=== PATIENT | female | born 1995 | race Caucasian/White ===

== ENCOUNTER 2016-10-31 21:21 | Emergency (ER) | payer MEDICAID ==
--- NOTE | 2016-10-31 21:27 | EDPHY ---
H & P Time Seen by Provider: 10/31/16 21:27 - Personal History Tetanus Vaccine Date: last 10 years - Medical/Surgical History Hx Asthma: No Hx Chronic Respiratory Disease: No Hx Diabetes: No Hx Cardiac Disease: No Hx Renal Disease: No Hx Cirrhosis: No Hx Alcoholism: No Hx HIV/AIDS: No Hx Splenectomy or Spleen Trauma: No Other PMH: meningitis as a child - Social History Smoking Status: Never smoked Allergies/Adverse Reactions: Penicillins Allergy (Unknown, Verified 02/06/16 09:36) as child Home Medications: Medication Instructions Recorded Azithromycin [Zithromax tab 250 mg] 250 mg PO DAILY #4 tab 02/06/16 Control Pill 02/06/16 Cephalexin [Keflex] 500 mg PO TID 5 Days 07/28/16 Medical Decision Making ED Course/Re-evaluation: CHIEF COMPLAINT: HISTORY OF PRESENT ILLNESS: must have 4 elements: Location, Quality, Severity , Duration, Timing, Context, Modifying Factors, Associated Signs and Symptoms REVIEW OF SYSTEMS: A 10 point review of systems was performed and is negative with the exception of the elements mentioned in the history of present illness. PHYSICAL EXAM: HR, BP, O2 Sat, RR. Temp noted General Appearance: Alert, well hydrated, appropriate, and non-toxic appearing. Head: Atraumatic without scalp tenderness or obvious injury Eyes: Pupils equal, round, reactive to light and accommodation, EOMI, no trauma , no injection. Ears: Clear bilaterally, no perforation, normal landmarks Nose: Atraumatic, no rhinorrhea, clear. Throat: There is no erythema or exudates, no lesions, normal tonsils, mucus membranes moist. Neck: Supple, 2+ carotid upstroke, nontender, no lymphadenopathy. Respiratory: No retractions, no distress, no wheezes, and no accessory muscle use. Lungs are clear to auscultation bilaterally. Cardiovascular: Regular rate and rhythm, no murmurs, rubs, or gallops. Bilateral carotid, radial, dorsalis pedis, and posterior tibial pulses intact. Good capillary refill all extremities. Gastrointestinal: Abdomen is soft, nontender, non-distended, no masses, no rebound, no guarding, no peritoneal signs. Musculoskeletal: Normal active ROM of all extremities, atraumatic. Neurological: Alert, appropriate, and interactive. The patient has normal DTRs and non-focal cranial nerves, motor, sensory, and cerebellar exam. Skin: No rashes, good turgor, no nodules on palpation. Past medical history: Past surgical history: Family history: Social history: DIAGNOSTICS/PROCEDURES/CRITICAL CARE TIME: DIFFERENTIAL DIAGNOSIS: MEDICAL DECISION MAKING:
[2016-10-31] MEDS ORDERED: LORazepam 2 MG/ML INJ IVP ONE (21:38)
[2016-10-31] MEDS ORDERED: HYDROmorphONE/DILAUDID 1 MG/ML SYR IVP ONE ×2 (21:38→22:57)
[2016-10-31] MEDS ORDERED: ONDANSETRON 4 MG/2 ML VIAL IVP ONE (21:38)
[2016-10-31] MEDS ORDERED: NS 1,000 ML IV ONE (21:38)
--- NOTE | 2016-10-31 21:43 | EDPHY ---
H & P Stated Complaint: intermittent stomach cramps/pain x2 days, recent viral illness Time Seen by Provider: 10/31/16 21:27 HPI/ROS: CHIEF COMPLAINT: Abdominal cramping x2 days HISTORY OF PRESENT ILLNESS: 21-year-old female via private vehicle in the emergency department with primary complaint of intermittent suprapubic and lower abdominal abdominal cramping which lasted anywhere between 10-15 seconds described as sharp and stabbing with no definitive pattern, no known exacerbating or alleviating factors. This started yesterday and has been occurring intermittently since. This evening she also notes new onset of flu-like symptoms described as fever, myalgia, bilateral otalgia. She also describes antecedent URI symptoms 1 week ago described as nonproductive cough and rhinorrhea which does seem to have resolved. No rash. No chest pain. No dyspnea. No urinary complaints. No flank pain. No dyspareunia. No STD or PID history. REVIEW OF SYSTEMS: A ten point review of systems was performed and is negative with the exception of the items mentioned in the HPI PAST MEDICAL & SURGICAL HISTORY: No history of abdominal surgeries SOCIAL HISTORY: Nonsmoker PHYSICAL EXAM (Prior to examination, patient consented to physical exam, hands were washed and my usual and customary physical exam procedures followed) 1) GENERAL: Well-developed, well-nourished, alert and oriented. Appears anxious. Crying. 2) HEAD: Normocephalic, atraumatic 3) HEENT: Pupils equal, round, reactive to light bilaterally. Sclera anicteric. Nasopharynx, oropharynx, clear, no lesions. No trismus no drooling. No tonsillar enlargement no exudate. Ears bilaterally with normal tympanic membranes. 4) NECK: Full range of motion, no meningeal signs. 5) LUNGS: Clear auscultation bilaterally, no wheezes, no rhonchi, no retractions. 6) HEART: Regular rate and rhythm, no murmur, no heave, no gallop. 7) ABDOMEN: tender to palpation suprapubic region. No guarding, no rebound, no focal tenderness, negative McBurney's, negative Austin's, negative Rovsing's, negative peritoneal sign, 8) MUSCULOSKELETAL: Moving all extremities, no focal areas of tenderness, no obvious trauma. No peripheral edema or discoloration. 9) BACK: No CVA tenderness, no midline vertebral tenderness, no fluctuance, no step-off, no obvious trauma, no visual or palpable abnormality. 10) SKIN: No rash, no petechiae. 11) Psychiatric: Patient is oriented X 3, she appears anxious DIFFERENTIAL DIAGNOSIS: My differential diagnosis includes, but is not limited to, influenza, acute appendicitis, , bowel obstruction, acute pancreatitis, ovarian torsion, ectopic , gastritis and urinary tract infection. The patient understands that this diagnosis is provisional and can never be 100% accurate. This is a partial list of diagnoses considered. These considerations are based on history, physical exam, past history and reassessment. - Personal History LMP (Females 10-55): 22-28 Days Ago Current Tetanus/Diphtheria Vaccine: Unsure Current Tetanus Diphtheria and Acellular Pertussis (TDAP): Unsure Tetanus Vaccine Date: last 10 years - Medical/Surgical History Hx Asthma: No Hx Chronic Respiratory Disease: No Hx Diabetes: No Hx Cardiac Disease: No Hx Renal Disease: No Hx Cirrhosis: No Hx Alcoholism: No Hx HIV/AIDS: No Hx Splenectomy or Spleen Trauma: No Other PMH: meningitis as a child - Social History Smoking Status: Never smoked Constitutional: Initial Vital Signs Temperature (C) 37.0 C 10/31/16 21:31 Heart Rate 110 H 10/31/16 21:31 Respiratory Rate 18 10/31/16 21:31 Blood Pressure 109/87 H 10/31/16 21:31 O2 Sat (%) 99 10/31/16 21:31 O2 Delivery Mode Room Air Allergies/Adverse Reactions: Penicillins Allergy (Unknown, Verified 02/06/16 09:36) as child Home Medications: Medication Instructions Recorded Junel 1 mg-20 Mcg Tablet 10/31/16 Medical Decision Making - Diagnostics Imaging: Ultrasound abdomen limited. History: Right lower quadrant pain. Elevated white blood cell count. Findings: Ultrasound is performed of the right lower quadrant. A normal nor an abnormal appendix is visualized. No evidence for an abnormal fluid collection. Fluid-filled bowel is seen in the right lower quadrant. Impression: Indeterminate study for appendicitis as a normal nor an abnormal appendix is visualized. Results called and discussed with Theresa Alex PA-C at 10/31/2016 22:55 Dictated By: Abel Win MD CT Scan of the Abdomen and Pelvis (With Contrast) Indication: Abdomen pain. Evaluate for appendicitis. Comparison: Ultrasound performed earlier. Technique: 85 mL of Isovue 300 were given intravenously by machine power injection. Multidetector helical CT imaging was performed from the diaphragm to the symphysis pubis. Dose reduction techniques were utilized. Findings: Abdomen: Lung bases are of acute consolidation. No focal liver lesion. Gallbladder is unremarkable. Pancreas is normal in appearance. Spleen is unremarkable. Both kidneys is enhance normally without evidence for mass or hydronephrosis. Both adrenal glands are normal in size and appearance. Pelvis: Mild stool is seen in the colon. No evidence for diverticulitis. The appendix is normal in size and appearance. No evidence for small bowel obstruction. Uterus and adnexal region is unremarkable. No evidence for bladder calculus. No aggressive osseous lesion. Impression: Normal CT of the abdomen and pelvis. No CT findings for appendicitis. Results called and discussed with Theresa Alex PA-C at 10/31/2016 23:32 Dictated By: Abel Win MD Images reviewed by myself ED Course/Re-evaluation: 9:50 p.m.: Discussed case Dr. Stephen Mitchell in the ER. Will obtain imaging studies. 10:44 p.m.: Re-evaluation after Ativan, Dilaudid, Zofran. She is feeling improvement although notes continued pain. She appears more calm . Awaiting the ultrasound results. 10:57 p.m.: I discussed with the patient her the ultrasound results showing a nonvisualized appendix. She has continued pain, requesting further analgesia. Given her continued pain in the lower abdomen , [place] [id number] , I have recommended further imaging with a CT scan. Discussed the indications risks benefits and she consents. 12:01 a.m.: Patient is sleeping. Re-examined. No complaints of abdominal pain. I am able to elicit a mild amount of pain with very deep palpation. I discussed her imaging results. doubt acute surgical abdominal pathology. The specific etiology of her abdominal pain is not completely clear at this time. We discussed the importance of follow-up with primary care with Gastroenterology. I offered admission which she declines. She feels comfortable being discharged with analgesia. Provided my usual and customary abdominal precautions instructions. - Data Points Laboratory Results: Laboratory Results 10/31/16 21:49 10/31/16 21:49 10/31/16 10/31/16 10/31/16 22:25 21:49 21:40 WBC 22.42 H 10^3/uL (3.80-9.50) RBC 5.31 10^6/uL (4.18-5.33) Hgb 14.8 g/dL (12.6-16.3) Hct 42.5 % (38.0-47.0) MCV 80.0 L fL (81.5-99.8) MCH 27.9 pg (27.9-34.1) MCHC 34.8 g/dL (32.4-36.7) RDW 13.2 % (11.5-15.2) Plt Count 317 10^3/uL (150-400) MPV 10.3 fL (8.7-11.7) Neut % (Auto) 86.0 H % (39.3-74.2) Lymph % (Auto) 6.5 L % (15.0-45.0) [place] % (Auto) 5.9 % (4.5-13.0) Eos % (Auto) 0.5 L % (0.6-7.6) Baso % (Auto) 0.4 % (0.3-1.7) Nucleat RBC Rel Count 0.0 % (0.0-0.2) Absolute Neuts (auto) 19.27 H 10^3/uL (1.70-6.50) Absolute Lymphs (auto) 1.46 10^3/uL (1.00-3.00) Absolute Monos (auto) 1.33 H 10^3/uL (0.30-0.80) Absolute Eos (auto) 0.12 10^3/uL (0.03-0.40) Absolute Basos (auto) 0.08 10^3/uL (0.02-0.10) Absolute Nucleated RBC 0.00 10^3/uL (0-0.01) Immature Gran % 0.7 % (0.0-1.1) Immature Gran # 0.16 H 10^3/uL (0.00-0.10) Sodium 141 mEq/L (134-144) Potassium 4.1 mEq/L (3.5-5.2) Chloride 106 mEq/L (97-110) Carbon Dioxide 21 L mEq/l (22-31) Anion Gap 14 mEq/L (8-16) BUN 8 mg/dL (7-23) Creatinine 0.7 mg/dL (0.6-1.0) Estimated GFR > 60 Glucose 105 H mg/dL (70-100) Calcium 9.9 mg/dL (8.5-10.4) Total Bilirubin 1.4 mg/dL (0.1-1.4) Conjugated Bilirubin 0.3 mg/dL (0.0-0.5) Unconjugated Bilirubin 1.1 mg/dL (0.0-1.1) AST 24 IU/L (14-46) ALT 28 IU/L (9-52) Alkaline Phosphatase 61 IU/L (38-126) Total Protein 7.9 g/dL (6.3-8.2) Albumin 4.6 g/dL (3.5-5.0) Lipase 129.0 IU/L (23-300) Beta HCG, Qual NEGATIVE Urine Color YELLOW Urine Appearance CLEAR Urine pH 5.0 (5.0-7.5) Ur Specific [place] 1.011 (1.002-1.030) Urine Protein NEGATIVE (NEGATIVE) Urine Ketones NEGATIVE (NEGATIVE) Urine Blood NEGATIVE (NEGATIVE) Urine Nitrate NEGATIVE (NEGATIVE) Urine Bilirubin NEGATIVE (NEGATIVE) Urine Urobilinogen NEGATIVE EU (0.2-1.0) Ur Leukocyte Esterase NEGATIVE (NEGATIVE) Urine RBC NONE SEEN /hpf (0-3) Urine WBC 1-3 /hpf (0-3) Ur Epithelial Cells 1+ /lpf (NONE-1+) Urine Bacteria NONE SEEN /hpf (NONE SEEN) Urine Mucus NONE SEEN /lpf (NONE-1+) Urine Glucose NEGATIVE (NEGATIVE) Influenza Typ A,B (DFA) NEGATIVE FOR FLU (NEGATIVE) Medications Given: Discontinued Medications Acetaminophen/Hydrocodone Bitart (Keldron 5/325mg Prepack#6) 1 btl TAKEHOME EDNOW ONE Stop: 11/01/16 00:07 Last Admin: 11/01/16 00:20 Dose: 1 btl Hydromorphone HCl (Dilaudid) 0.5 mg IVP EDNOW ONE Stop: 10/31/16 21:39 Last Admin: 10/31/16 21:44 Dose: 0.5 mg Hydromorphone HCl (Dilaudid) 1 mg IVP EDNOW ONE Stop: 10/31/16 22:58 Last Admin: 10/31/16 23:03 Dose: 1 mg Sodium Chloride (Ns) 1,000 mls @ 0 mls/hr IV ONCE ONE PRN Reason: Wide Open Stop: 10/31/16 21:39 Last Admin: 10/31/16 21:40 Dose: 1,000 mls Lorazepam (Ativan Injection) 1 mg IVP EDNOW ONE Stop: 10/31/16 21:39 Last Admin: 10/31/16 21:42 Dose: 1 mg Ondansetron HCl (Zofran) 4 mg IVP EDNOW ONE Stop: 10/31/16 21:39 Last Admin: 10/31/16 21:40 Dose: 4 mg Departure - Departure Disposition: Home, Routine, Self-Care Clinical Impression: Abdominal pain Condition: Good Instructions: Acute Abdominal Pain (ED) Additional Instructions: Seek immediate medical attention if you develop new or worsening symptoms, if you develop fevers, chills, inability to tolerate oral intake or any other symptoms that concerns you. Referrals: Esequiel Gillette [Doctor of Osteopathy] - 1-2 days without fail (Dr. Esequiel Gillette is a primary care provider) Daniel Jensen MD [Medical Doctor] - 5-7 days, call for appt. (Dr. Daniel Jensen is a loan teller)
[2016-10-31 21:57] LABS: % IMMATURE GRANULYOCYTES 0.7 % (0.0-1.1); ABSOLUTE IMMATURE GRANULOCYTES 0.16 10^3/uL (0.00-0.10); ADD DIFF? NO; ADD MORPH? NO; ADD SCAN? NO; ATYPICAL LYMPHOCYTE FLAG 0 (0-99); FRAGMENT RBC FLAG 0 (0-99); HEMATOCRIT 42.5 % (38.0-47.0); HEMOGLOBIN 14.8 g/dL (12.6-16.3); LEFT SHIFT FLG 0 (0-99); LIPEMIA HEMOLYSIS FLAG 90 (0-99); MEAN CELL HEMOGLOBIN 27.9 pg (27.9-34.1); MEAN CELL HEMOGLOBIN CONCENTR. 34.8 g/dL (32.4-36.7); MEAN PLATELET VOLUME 10.3 fL (8.7-11.7); PLATELET CLUMPS FLAG 20 (0-99); PLATELET COUNT 317 10^3/uL (150-400); RED BLOOD CELL COUNT 5.31 10^6/uL (4.18-5.33); RED CELL DISTRIBUTION WIDTH 13.2 % (11.5-15.2)
[2016-10-31 22:10] LABS: ALANINE AMINOTRANSFERASE 28 IU/L (9-52); ALBUMIN 4.6 g/dL (3.5-5.0); ALKALINE PHOSPHATASE 61 IU/L (38-126); ANION GAP 14 mEq/L (8-16); ASPARTATE AMINOTRANSFERASE 24 IU/L (14-46); BILIRUBIN,TOTAL 1.4 mg/dL (0.1-1.4); BILIRUBIN-CONJUGATED 0.3 mg/dL (0.0-0.5); BILIRUBIN-UNCONJUGATED 1.1 mg/dL (0.0-1.1); CALCIUM 9.9 mg/dL (8.5-10.4); CARBON DIOXIDE 21 mEq/l (22-31); CHLORIDE 106 mEq/L (97-110); CREATININE 0.7 mg/dL (0.6-1.0); GLOMERULAR FILTRATION RATE > 60; GLUCOSE 105 mg/dL (70-100); POTASSIUM 4.1 mEq/L (3.5-5.2); SODIUM 141 mEq/L (134-144); TOTAL PROTEIN 7.9 g/dL (6.3-8.2)
[2016-10-31 22:32] LABS: COLOR YELLOW; LEUKOCYTE ESTERASE,URINE NEGATIVE (NEGATIVE); NITRITE,URINE NEGATIVE (NEGATIVE)
[2016-10-31 22:36] LABS: BACTERIA NONE SEEN /hpf (NONE SEEN); MUCUS NONE SEEN /lpf (NONE-1+); RBC,URINE NONE SEEN /hpf (0-3)
[2016-10-31] MEDS ORDERED: IOPAMIDOL (ISOVUE-300) 100 ML BTL IV ONE (22:57)
--- NOTE | 2016-10-31 22:57 | US ---
Ultrasound abdomen limited. History: Right lower quadrant pain. Elevated white blood cell count. Findings: Ultrasound is performed of the right lower quadrant. A normal nor an abnormal appendix is v isualized. No evidence for an abnormal fluid collection. Fluid-filled bowel is seen in the right lowe r quadrant. Impression: Indeterminate study for appendicitis as a normal nor an abnormal appendix is visualized. Results called and discussed with Theresa Alex PA-C at 10/31/2016 22:55
--- NOTE | 2016-10-31 22:59 | US ---
Ultrasound pelvic complete. History: Lower abdominal pain. Evaluate for ovarian cyst. Technique: Transabdominal and transvaginal imaging was obtained of the pelvis. Findings: The uterus measures 7.5 x 4.5 x 4.3 cm. No evidence for myometrial mass. Endometrial stripe measures 4 mm. Right ovary measures 2.2 x 1.8 x 2.9 cm and the left ovary measures 1.8 x 2.0 x 2.3 c m. There is a dominant follicle in the right ovary measuring 1.5 cm. Both ovaries are normal in appea jarod and demonstrate normal blood flow. Impression: Normal pelvic ultrasound. Results called and discussed with Theresa Alex PA-C at 10/31/2016 22:57
--- NOTE | 2016-10-31 23:34 | CT ---
CT Scan of the Abdomen and Pelvis (With Contrast) Indication: Abdomen pain. Evaluate for appendicitis. Comparison: Ultrasound performed earlier. Technique: 85 mL of Isovue 300 were given intravenously by machine power injection. [facility] imaging was performed from the diaphragm to the symphysis pubis. Dose reduction techniques w ere utilized. Findings: Abdomen: Lung bases are of acute consolidation. No focal liver lesion. Gallbladder is unremarkable. P ancreas is normal in appearance. Spleen is unremarkable. Both kidneys is enhance normally without jayjay dence for mass or hydronephrosis. Both adrenal glands are normal in size and appearance. Pelvis: Mild stool is seen in the colon. No evidence for diverticulitis. The appendix is normal in si ze and appearance. No evidence for small bowel obstruction. Uterus and adnexal region is unremarkable . No evidence for bladder calculus. No aggressive osseous lesion. Impression: Normal CT of the abdomen and pelvis. No CT findings for appendicitis. Results called and discussed with Theresa Alex PA-C at 10/31/2016 23:32
[2016-11-01] MEDS ORDERED: HYDROCOD/APAP 5/325 PREPACK#6 BTL TAKEHOME ONE (00:06)
[2016-11-01 00:22] VITALS: BP 115/74; PULSE 88; RESP 20; TEMP 98.8; O2SAT 94
== END 2016-11-01 00:28 | disposition home or self-care (01) ==
DX: R10.30 Lower abdominal pain, unspecified (principal)
CPT/HCPCS: 96374; J1170; J2405; Q9967

== ENCOUNTER 2016-11-03 16:49 | Observation (INO) | payer MEDICAID ==
[2016-11-03] MEDS ORDERED: NS 1,000 ML IV ONE (17:10)
[2016-11-03] MEDS ORDERED: ONDANSETRON 4 MG/2 ML VIAL IVP ONE ×2 (17:10→18:36)
--- NOTE | 2016-11-03 17:17 | EDPHY ---
H & P Stated Complaint: SENT BACK BY GASTRO FOR IV FLUIDS DUE TO TACHYCARDIA Source: Patient, Old records - Personal History LMP (Females 10-55): 22-28 Days Ago Current Tetanus Diphtheria and Acellular Pertussis (TDAP): Yes Tetanus Vaccine Date: last 10 years - Medical/Surgical History Hx Asthma: No Hx Chronic Respiratory Disease: No Hx Diabetes: No Hx Cardiac Disease: No Hx Renal Disease: No Hx Cirrhosis: No Hx Alcoholism: No Hx HIV/AIDS: No Hx Splenectomy or Spleen Trauma: No Other PMH: meningitis as a child - Social History Smoking Status: Never smoked HPI/ROS: CHIEF COMPLAINT: Abdominal pain, vomiting HISTORY OF PRESENT ILLNESS: nausea, vomiting abdominal pain since . This is primarily periumbilical epigastric. It was sudden onset. It has been constant in duration. She was seen here at this facility on Thursday, and I have reviewed those records. laboratory studies, pelvic ultrasound and abdominal ultrasound were unremarkable. CT scan was performed with no acute findings as well. She was discharged home with pain medication might nausea medication. She did feel better Thursday and Thursday. However the medications were working less well yesterday. She reports 5-7 episodes of vomiting yesterday, 5 episodes today. It is significantly worse after attempting to take anything in by mouth. No fever or chills. No constipation or diarrhea. Worse with any kind of palpation, movement or intake by mouth. Minimal improvement with rest and pain medications. The Zofran is no longer working as well. No previous abdominal diagnoses. Sexually active and has no pelvic pain , vaginal pain or discharge. She was active GI specialist today, a specialist sent her here for further evaluation due to significant pain and high heart rate. No other associated complaints or modifying factors. PREVIOUS ABDOMINAL SURGERIES/DIAGNOSES: None NPO: this morning REVIEW OF SYSTEMS: Ten systems reviewed and are negative unless otherwise noted in the HPI EXAMINATION: General Appearance: Alert, no distress, crying but consolable Head: normocephalic, atraumatic Eyes: Pupils equal and round, no conjunctival pallor or injection. EOMs intact. ENT, Mouth: Mucous membranes moist . No lesions or edema. No erythema. Neck: Normal inspection, supple, non-tender Respiratory: Lungs are clear to auscultation . No wheezing, rhonchi or crackles. Cardiovascular: Regular rate and rhythm . No murmur. Pulses intact distally. Gastrointestinal: Abdomen is soft With moderate tenderness of the periumbilical and epigastrium. There is guarding of the periumbilical region. No point tenderness of the right or left lower quadrant. No point tenderness of the right upper quadrant. Negative Austin's. Negative McBurney. No tympany rigidity. No CVA tenderness. Neurological: A&O, nonfocal, Strength is 5/5 in all limbs. Skin: Warm and dry, no rash Extremities: Nontender, no pedal edema Psychiatric: Mood and affect normal DIFFERENTIAL DIAGNOSES: Including but not limited to Acute appendicitis, enteritis, colitis, diverticulitis, cystitis, duodenitis, gastritis, peptic ulcer, cholecystitis, pancreatitis MDM: 5:20 p.m. ongoing nausea and vomiting with epigastric and periumbilical abdominal pain. This has been present now for 4 days. She did have a brief period of improvement. Vital signs are stable but she is significantly tender in these regions. Laboratory studies, pain medication, IV fluids and nausea medicine are being administered and checked at this time. 5:45 p.m. laboratory studies are within normal limits regarding the chemistry. The CBC reveals a white count that is improved since previous study 3 days ago. I have discussed the case with General surgery Dr. Nguyễn. He will come evaluate the patient in the emergency department. 6:[address] Nguyễn has evaluated the patient. He is requesting a GI cocktail at this time. He is reviewing her laboratory studies and CT scan at this time 6:30 p.m. patient remains resting comfortably. She is still not wanting to take the pain medication, but she is taking the GI cocktail. She is feeling minimally better with this. 7:[address] Nguyễn has re-evaluated patient, he has reviewed the CT scan in detail, and he has reviewed the CT scan with the radiologist. Dr. Nguyễn suggests that this may be a gastritis. He does not feel that there is a surgical abnormality at this time. He feels the patient is stable for discharge home with PPI therapy and keep her follow up with Gastroenterology as scheduled. I agree with this assessment and I also feel that she is stable for discharge home with the above. 8:00 p.m. after further discussion with the patient, she is requesting admission as she is uncomfortable going home with her level of pain and vomiting. I also feel this is reasonable given her scenario. I have discussed case with the hospitalist Dr. Rivera and she agrees to observe her overnight. I have also discussed the case with the on-call GI physician Dr. Augustine, and he will see the patient in the morning in consultation. ED Precautions: Worsening pain. Fever. Bloody stools. Bloody emesis. Constipation or diarrhea. SUPERVISION:Patient was evaluated in conjunction with the supervising physician. Please see their note for details. (Shimon Vera) Constitutional: Initial Vital Signs Temperature (C) 36.9 C 11/03/16 16:51 Heart Rate 83 11/03/16 16:51 Respiratory Rate 16 11/03/16 16:51 Blood Pressure 153/103 H 11/03/16 16:51 O2 Sat (%) 97 11/03/16 16:51 O2 Delivery Mode Room Air Allergies/Adverse Reactions: Penicillins Allergy (Unknown, Verified 11/03/16 16:55) as child Home Medications: Medication Instructions Recorded Norethindrone AC-Eth Estradiol 1 each PO DAILY 11/03/16 [] - Data Points Laboratory Results: Laboratory Results 11/03/16 17:15 11/03/16 17:15 11/03/16 11/03/16 18:29 17:15 WBC 12.22 H D 10^3/uL (3.80-9.50) RBC 4.93 10^6/uL (4.18-5.33) Hgb 13.7 g/dL (12.6-16.3) Hct 39.3 % (38.0-47.0) MCV 79.7 L fL (81.5-99.8) MCH 27.8 L pg (27.9-34.1) MCHC 34.9 g/dL (32.4-36.7) RDW 12.9 % (11.5-15.2) Plt Count 290 10^3/uL (150-400) MPV 10.2 fL (8.7-11.7) Neut % (Auto) 77.7 H % (39.3-74.2) Lymph % (Auto) 11.4 L % (15.0-45.0) [place] % (Auto) 8.3 % (4.5-13.0) Eos % (Auto) 1.2 % (0.6-7.6) Baso % (Auto) 0.6 % (0.3-1.7) Nucleat RBC Rel Count 0.0 % (0.0-0.2) Absolute Neuts (auto) 9.50 H 10^3/uL (1.70-6.50) Absolute Lymphs (auto) 1.39 10^3/uL (1.00-3.00) Absolute Monos (auto) 1.01 H 10^3/uL (0.30-0.80) Absolute Eos (auto) 0.15 10^3/uL (0.03-0.40) Absolute Basos (auto) 0.07 10^3/uL (0.02-0.10) Absolute Nucleated RBC 0.00 10^3/uL (0-0.01) Immature Gran % 0.8 % (0.0-1.1) Immature Gran # 0.10 10^3/uL (0.00-0.10) Sodium 142 mEq/L (134-144) Potassium 3.9 mEq/L (3.5-5.2) Chloride 105 mEq/L (97-110) Carbon Dioxide 25 mEq/l (22-31) Anion Gap 12 mEq/L (8-16) BUN 10 mg/dL (7-23) Creatinine 0.9 mg/dL (0.6-1.0) Estimated GFR > 60 Glucose 97 mg/dL (70-100) Calcium 9.3 mg/dL (8.5-10.4) Total Bilirubin 0.9 mg/dL (0.1-1.4) Conjugated Bilirubin 0.2 mg/dL (0.0-0.5) Unconjugated Bilirubin 0.7 mg/dL (0.0-1.1) AST 26 IU/L (14-46) ALT 30 IU/L (9-52) Alkaline Phosphatase 68 IU/L (38-126) Total Protein 7.3 g/dL (6.3-8.2) Albumin 4.1 g/dL (3.5-5.0) Lipase 108.0 IU/L (23-300) Beta HCG, Qual NEGATIVE Urine Color PALE YELLOW Urine Appearance CLEAR Urine pH 7.0 (5.0-7.5) Ur Specific [place] 1.004 (1.002-1.030) Urine Protein NEGATIVE (NEGATIVE) Urine Ketones NEGATIVE (NEGATIVE) Urine Blood NEGATIVE (NEGATIVE) Urine Nitrate NEGATIVE (NEGATIVE) Urine Bilirubin NEGATIVE (NEGATIVE) Urine Urobilinogen NEGATIVE EU (0.2-1.0) Ur Leukocyte Esterase NEGATIVE (NEGATIVE) Ur Culture Indicated? NOT INDICATED (NI) Urine Glucose NEGATIVE (NEGATIVE) Medications Given: Discontinued Medications Sodium Chloride (Ns) 1,000 mls @ 0 mls/hr IV EDNOW ONE PRN Reason: Wide Open Stop: 11/03/16 17:11 Last Admin: 11/03/16 17:20 Dose: 1,000 mls Miscellaneous Medication (Gi Cocktail) 55 ml PO EDNOW ONE Stop: 11/03/16 18:20 Last Admin: 11/03/16 18:31 Dose: 55 ml Ondansetron HCl (Zofran) 4 mg IVP EDNOW ONE Stop: 11/03/16 17:11 Last Admin: 11/03/16 17:20 Dose: 4 mg Ondansetron HCl (Zofran) 4 mg IVP EDNOW ONE Stop: 11/03/16 18:37 Last Admin: 11/03/16 18:40 Dose: 4 mg Pantoprazole Sodium (Protonix) 40 mg IVP EDNOW ONE Stop: 11/03/16 17:30 Last Admin: 11/03/16 17:38 Dose: 40 mg Departure - Departure Disposition: [facility] Clinical Impression: Abdominal pain Qualifiers: Abdominal location: periumbilical Qualifier Code: (R10.33) Periumbilical pain Nausea & vomiting Qualifiers: Vomiting type: unspecified Vomiting Intractability: intractable Qualifier Code : (R11.2) Nausea with vomiting, unspecified Condition: Good
[2016-11-03 17:23] LABS: % IMMATURE GRANULYOCYTES 0.8 % (0.0-1.1); ADD DIFF? NO; ADD MORPH? NO; ADD SCAN? NO; ATYPICAL LYMPHOCYTE FLAG 10 (0-99); FRAGMENT RBC FLAG 0 (0-99); HEMATOCRIT 39.3 % (38.0-47.0); HEMOGLOBIN 13.7 g/dL (12.6-16.3); LEFT SHIFT FLG 0 (0-99); LIPEMIA HEMOLYSIS FLAG 90 (0-99); MEAN CELL HEMOGLOBIN 27.8 pg (27.9-34.1); MEAN CELL HEMOGLOBIN CONCENTR. 34.9 g/dL (32.4-36.7); MEAN CELL VOLUME 79.7 fL (81.5-99.8); MEAN PLATELET VOLUME 10.2 fL (8.7-11.7); PLATELET CLUMPS FLAG 10 (0-99); PLATELET COUNT 290 10^3/uL (150-400); RED BLOOD CELL COUNT 4.93 10^6/uL (4.18-5.33); RED CELL DISTRIBUTION WIDTH 12.9 % (11.5-15.2)
[2016-11-03] MEDS ORDERED: PANTOPRAZOLE SODIUM 40 MG VIAL IVP ONE (17:29)
[2016-11-03 17:40] LABS: ALANINE AMINOTRANSFERASE 30 IU/L (9-52); ALBUMIN 4.1 g/dL (3.5-5.0); ALKALINE PHOSPHATASE 68 IU/L (38-126); ANION GAP 12 mEq/L (8-16); ASPARTATE AMINOTRANSFERASE 26 IU/L (14-46); BILIRUBIN,TOTAL 0.9 mg/dL (0.1-1.4); BILIRUBIN-CONJUGATED 0.2 mg/dL (0.0-0.5); BILIRUBIN-UNCONJUGATED 0.7 mg/dL (0.0-1.1); CALCIUM 9.3 mg/dL (8.5-10.4); CARBON DIOXIDE 25 mEq/l (22-31); CHLORIDE 105 mEq/L (97-110); CREATININE 0.9 mg/dL (0.6-1.0); GLOMERULAR FILTRATION RATE > 60; GLUCOSE 97 mg/dL (70-100); POTASSIUM 3.9 mEq/L (3.5-5.2); SODIUM 142 mEq/L (134-144); TOTAL PROTEIN 7.3 g/dL (6.3-8.2)
[2016-11-03] MEDS ORDERED: MAALOX/LIDO/HYOSC GI COCKTAIL 55 ML BOTTLE PO ONE (18:19)
[2016-11-03 18:34] LABS: COLOR PALE YELLOW; LEUKOCYTE ESTERASE,URINE NEGATIVE (NEGATIVE); NITRITE,URINE NEGATIVE (NEGATIVE)
[2016-11-03] MEDS: SUCRALFATE 1 GM TAB PO SCH (21:47)
[2016-11-03 22:43] VITALS: RESP 16
[2016-11-03] MEDS ORDERED: PROMETHAZINE HCL 25 MG/ML INJ IVP PRN (22:56)
[2016-11-03] MEDS ORDERED: ONDANSETRON 4 MG/2 ML VIAL IVP PRN (22:56)
[2016-11-03] MEDS ORDERED: ONDANSETRON DISINTEGRATING 4 MG TAB PO PRN (22:56)
[2016-11-03] MEDS ORDERED: HYDROmorphONE/DILAUDID 1 MG/ML SYR IVP PRN (22:56)
[2016-11-03] MEDS ORDERED: ACETAMINOPHEN 325 MG TAB PO PRN (22:56)
[2016-11-03] MEDS ORDERED: SIMETHICONE DROPS 30 ML BOTTLE PO PRN (23:04)
--- NOTE | 2016-11-03 23:31 | GHP ---
[f rep st] HISTORY AND PHYSICAL DATE OF ADMISSION: 11/03/2016 HISTORY OF PRESENT ILLNESS: The patient is a pleasant 21-year-old female with no past medical histor y, who was seen in the ER 3 days ago with abdominal pain. At that time, she had a workup that includ ed CAT scan of her abdomen showing no evidence of appendicitis. She was sent home on it sounds like pain medicine, nausea medicine, and perhaps a PPI, and she had continued abdominal pain. She describ es some nausea and vomiting, but no hematemesis or coffee-grounds emesis. No melena. No bright red blood per rectum. She has been eating poorly. She saw her print color operator today who felt this li rosmery represented a viral illness, but she was uncomfortable with her tachycardia, and she was referre d to the emergency department. When I see the patient, there are crackers at the bedside. She says this is the first thing she has eaten all day without vomiting. She denies previous medical history. There is no family history of Crohn disease. She has had over the last couple of days some subjective fevers and chills. No rigors. She had wisd om tooth extraction about a month ago and took scheduled NSAIDs for a period of time but has not take n none since. She does not smoke cigarettes or drink alcohol. REVIEW OF SYSTEMS: Complete 10-point review of systems was conducted negative except as noted in HPI . PAST MEDICAL HISTORY: None. ALLERGIES: Penicillin. HOME MEDICATIONS: Oral contraceptive pills. FAMILY HISTORY: Notable for renal cancer in her grandmother, appendicitis in a number of people. 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 Does not smoke cigarettes or drink alcohol. PHYSICAL EXAM: VITAL SIGNS: Temp 37.1, blood pressure 132/75, pulse 78, breathing 17 times a minute , 95% on room air. GENERAL: No acute distress. HEENT: Sclerae anicteric. Oropharynx clear. Muco us membranes moist. NECK: Supple. No lymphadenopathy or JVD. LUNGS: Clear to auscultation bilate rally. HEART: S1, S2. Not tachycardic. ABDOMEN: Soft, nontender, nondistended. LOWER EXTREMITIE S: No edema. Calves nontender. SKIN: Without rash. NEUROLOGIC: Grossly nonfocal. LAB: Notable for a white count of 12.22 which is down from 22 three days ago. Her hematocrit is 39, MCV is low at 79.7, platelet count is 290,000. Sodium 142, potassium 3.9, chloride 105, bicarb 25, BUN 10, creatinine 0.9. LFTs normal. Lipase normal. Beta hCG is negative. Urinalysis is negative. White count as mentioned. She was influenza negative recently. There is no imaging today. I disc ussed the case in [facility]. I reviewed/interpreted the images of her previous CAT scan. ASSESSMENT AND PLAN: This is a 21-year-old female with likely resolving viral gastroenteritis with a bdominal pain. 1. Abdominal pain. Will treat this symptomatically with a little bit of IV Dilaudid but really will minimize pain medicine. Can also add simethicone as an antispasmodic. 2. Nausea. I think this again is likely secondary to poor gastric motility from resolving gastroent eritis. Provide simethicone as well as nausea medicine. 3. Dehydration. The patient was apparently tachycardia as an outpatient. She is not tachycardic he re and her labs are not consistent dehydration. Provide her with gentle IV fluids overnight. 4. Gastroenteritis, resolving. Will put on her diet as tolerated. 5. Prophylaxis: She is low risk. 6. Disposition: Observation status. Apparently Gastroenterology will see her in the morning. /[id number]/MODL
[2016-11-04] MEDS: PANTOPRAZOLE SODIUM 40 MG in NS 100 ML IV SCH ×2 (00:15→09:55)
[2016-11-04] MEDS: NS 1,000 ML IV SCH ×2 (00:24→10:02)
--- NOTE | 2016-11-04 01:22 | GCON ---
[f rep st] CONSULTATION REFERRING PHYSICIAN: Dong Salmon MD The patient is a 21-year-old female who was working out on night at the gym doing 1 arm lift s with 7-1/2 pounds over her head. She had the sudden onset of a sharp pain below her umbilicus that shot up to her xiphoid. She initially found if she put a 20 pound weight on her abdomen, she felt a little better. That response was transit. She was worse on Thursday. 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 She went home and took a nap. At that point, she also started complaining of other discomforts, pa in above her right eyebrow and behind her right ear. She was given hydrocodone and tried that on Thu, Thursday, and Thursday. This resulted in nausea and some vomiting. She went to see a gastroenter ologist today and it was proposed that she should return within a week for an EGD and a colonoscopy. As her pain continued, she presented to the emergency room for evaluation. Note is made that she is hungry. When she does eat, the pain occurs approximately 30 minutes after eating. She does complain of some discomfort when she is standing. Note is made she does not use any nonsteroidal anti-inflam matory agents. She had her last period a month ago. She has had extensive evaluation with abdominal CT, as well as pelvic ultrasounds. In reviewing the old studies, I note that the antrum has a very, very thick wall . I did suggest a GI cocktail, which did make her feel distinctly better. PAST MEDICAL HISTORY: She is allergic penicillin. PHYSICAL EXAMINATION: GENERAL: She is seen lying now comfortably in ER bed 7. VITAL SIGNS: Her bl ood pressure was 153/103 at 88. Her temperature was 36.9. ABDOMEN: On examination, she is tender with cough in the low epigastrium. Her right psoas and obtur ator signs are positive. Her left psoas sign is minimally positive. She has normoactive bowel sounds. Her beta HCG was negative. Her white count was 12.2, she has a microcytic hypochromic anemia. Her l ipase was 108. She does note that both her mother and her maternal grandmother had problems with ane derik. IMPRESSION: This patient has findings consistent with a gastritis that is improved with a GI cocktai l. I recommend that we treat her with a proton pump inhibitor and consider getting an evaluation for H pylori. I think it would be reasonable for her go through her EGD. The fact that she has a micro cytic hypochromic anemia, which apparently is familial, I do think it needs to be worked up as a sepa rate issue. /[id number]/MODL
--- NOTE | 2016-11-04 08:30 | HOSPPROG ---
Hospitalist Progress Note Assessment/Plan: 21 yo F w likely viral gastroenteritis benign exam nausea improving home today see dc summary Subjective: hungry. tolerated clears. afebrile Objective: Vital Signs Temp Pulse Resp BP Pulse Ox 37.1 C 65 16 122/73 H 98 11/03/16 22:41 11/03/16 22:41 11/03/16 22:41 11/03/16 22:41 11/03/16 22:41 11/03/16 11/04/16 11/05/16 05:59 05:59 05:59 Intake Total 1100 Balance 1100 - Physical Exam Constitutional: no apparent distress Eyes: PERRL, anicteric sclera Ears, Nose, Mouth, Throat: moist mucous membranes, hearing normal Cardiovascular: regular rate and rhythym, no murmur, rub, or gallop Respiratory: no respiratory distress, no rales or rhonchi Gastrointestinal: normoactive bowel sounds, soft, non-tender abdomen, No tenderness, No guarding, No rebound Genitourinary: no bladder fullness Skin: warm, normal color Musculoskeletal: full muscle strength, no muscle tenderness Neurologic: AAOx3 ICD10 Worksheet Patient Problems: Problems Problem Status Onset Abdominal pain Acute Nausea & vomiting Acute Urinary tract infection Acute
[2016-11-04] MEDS ORDERED: NORETHINDRONE AC ETH ESTRADIOL PO SCH (09:00)
--- NOTE | 2016-11-04 09:38 | GDS ---
[f rep st] DISCHARGE SUMMARY DISCHARGE DIAGNOSES: Likely viral gastroenteritis with nausea, vomiting. HOSPITAL COURSE: Please see admission history and physical by Dr. Sedrick Felix. The patient pres ented with abdominal pain. She was seen by surgery who felt this represented a benign etiology. Sh daisy had been seen earlier where she had a negative test and CT scan that showed no evidence of appendicitis. She has continued to improve. She is doing well on clear liquids. I have written a conditional dis charge for today. /[id number]/MODL
--- NOTE | 2016-11-04 10:54 | GCON ---
[f rep st] CONSULTATION DATE OF CONSULTATION: 11/04/2016 REFERRING PHYSICIAN: Chrystal Rivera MD CHIEF COMPLAINT: Abdominal pain. HISTORY OF PRESENT ILLNESS: Dr. Rivera, thank you kindly for asking me to evaluate this patient in consultation for a chief complaint of epigastric abdominal pain. She was in her usual state of health when she was working out, performing yoga, lifting overhead weights that were kind of light at 7.5 pounds, she describes, but developed during the exercise an abrupt onset of periumbilical abdominal pain. It was sharp and stabbing and very focal, but then radiated up into her chest. The pain exacerbated every few minutes and was quite severe. She went to the emergency room on Thursday at the [facility] and had a nondiagnostic evaluation at that time including a pelvic ultrasound, abdominal ultrasound and abdominal CT scan, which were on October 31. She was given medication for pain but this made her nauseated. The pain continued and she was seen last night again in the emergency room and was admitted for further evaluation and management. Of note, she describes receiving a GI cocktail in the ER, which completely resolved her pain. She has been receiving IV fluids and Protonix, and continues to have epigastric and periumbilical discomfort this morning. She has not had any further nausea or vomiting. She denies fever. I am asked to assist with further evaluation and management. PAST MEDICAL HISTORY: None. PAST SURGICAL HISTORY: None. MEDICATIONS: On admission include oral contraceptive. ALLERGIES: Penicillin. SOCIAL HISTORY: The patient is a [employer] student. 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 No tobacco, no alcohol, no substance abuse. FAMILY HISTORY: Negative for peptic ulcer disease or gallbladder illness. REVIEW OF SYSTEMS: CONSTITUTIONAL: Denies anorexia, weight loss, fever, chills , or night sweats. HEENT: Denies headache, visual disturbances, sore throat, rhinorrhea or epistaxis. No ear pain. PULMONARY: Denies cough, shortness of breath. CARDIOVASCULAR: Denies palpitations, syncope or chest pain. GI: Denies heartburn or dysphagia. No melena, no hematochezia. No diarrhea. No constipation. The only real complaint is the centralized abdominal pain which is moderate to severe in intensity. DERMATOLOGIC : No rash or jaundice. No pruritus. MUSCULOSKELETAL: No rheumatologic complaints such as joint swelling or pain. No focal tenderness to the joints. No low back pain. GENITOURINARY: No dysuria or hematuria. GYNECOLOGIC: No dyspareunia. No vaginal discharge or bleeding. No difficulty with menstrual cycles. PHYSICAL EXAM: VITAL SIGNS: Blood pressure is 122/73 with a mean arterial pressure of 89, heart rate is 65, respirations are 16, oxygenation is 98% on room air. Temperature max is 37.1, which is also her temperature current. GENERAL: Healthy-appearing young female, in no acute distress. HEENT: Normocephalic, atraumatic. Oropharynx clear. NECK: Supple. No lymphadenopathy. No thyromegaly. No jugular venous distention. Sclerae are anicteric. Mucous membranes are moist. PULMONARY: Clear to auscultation bilaterally. CARDIOVASCULAR: Regular rate and rhythm without murmur, rub, or gallop. GI: The abdomen is scaphoid and nondistended. Normal bowel sounds. There is significant periumbilical and epigastric tenderness to palpation without palpable mass, herniation, rebound or guarding. No ascites, no organomegaly, no abdominal bruit. Bowel sounds are somewhat hypoactive. MUSCULOSKELETAL: Normal gait and station. No joint deformity, swelling or warmth. DERMATOLOGIC: Normal skin without jaundice or rash. Capillary refill is normal. SKIN: Warm and dry. Normal color. NEUROLOGIC: Alert to person, place, and time. Cranial nerves are grossly intact. Normal gait and station with ability to ambulate without ataxia. Nonfocal motor exam. DATABASE: Includes a CT scan of the abdomen and pelvis on October 31, 2016. This reveals normal liver, normal gallbladder. Pancreas is normal. Spleen is normal. Bilateral kidneys are normal. There was stool seen in the colon without diverticulitis. The appendix is visualized and normal. The uterus and adnexal regions are unremarkable. The bladder is normal. Abdominal ultrasound on October 31, 2016, was of the right lower quadrant and was indeterminate for appendicitis as the appendix could not be visualized due to overlying bowel gas , but there was no abnormal fluid collection. There was some fluid-filled bowel seen, which is, I believe, unremarkable. Pelvic ultrasound on February 10 , 2017 shows normal exam without adnexal abnormality or uterine problem Database includes white blood count of 12.2, hematocrit 39.3, with an MCV of 79.7, platelets are 290. Sodium 142, potassium 3.9, chloride 105, bicarbonate 25, BUN 10, creatinine 0.9, total bilirubin 0.9. Alkaline phosphatase 68, AST 26, ALT 30, lipase 108. Beta HCG is negative. IMPRESSION: 1. Epigastric and periumbilical abdominal pain. 2. Nausea. RECOMMENDATIONS: 1. Upper endoscopy today to evaluate her abdominal complaints further. 2. Continue Protonix. 3. N.p.o. 4. It sounds interesting to me that this abdominal discomfort began during exercise and may simply represent a musculoskeletal traumatic injury. The nature of her complaint and physical exam also suggests that the tenderness is actually within the abdominal wall. She is, however, improved with GI cocktail and is better with IV Protonix and bowel rest, so I think an endoscopy is reasonable. 5. Further recommendations to follow our endoscopic evaluation today. The patient has asked to make sure that she is "sleeping" with her procedure and does not want to recall any of the events. We will arrange for propofol for her comfort. /[id number]/MODL MTDD
[2016-11-04] MEDS ORDERED: PROPOFOL/EMULSION 500 MG/50 ML BOTTLE IV ONE (13:18)
[2016-11-04] MEDS ORDERED: LIDOCAINE 2% 100 MG/5 ML SYR IVP ONE (13:18)
[2016-11-04] MEDS ORDERED: fentaNYL 100 MCG/2 ML INJ ONE (13:18)
--- NOTE | 2016-11-04 13:59 | GPN ---
[f rep st] PROCEDURE NOTE INDICATION: Abdominal pain. ASSISTANTS: Katelyn. Diallo. ANESTHESIA: Provided by Dr. Sanchez, monitored anesthesia care. CONSENT: Procedure consent was obtained from Ms. Wagner all after the risks and benefits of anesth esia and endoscopy were discussed in detail. The patient is competent to make her own medical decis ions and informed consent was obtained. PROCEDURE MONITORING: Continuous by Anesthesiology protocol. COMPLICATIONS: None. ESTIMATED BLOOD LOSS: None. DESCRIPTION OF PROCEDURE: Ms. Wagner was placed into the left lateral decubitus position with the head of bed at 30 degrees. Oxygen mask was provided. IV propofol given and then the endoscope util ized to intubate the tubular esophagus under direct visualization without difficulty. The endoscope was ultimately advanced into the 2nd portion of the duodenum. All mucosal surfaces were examined i n their entirety including a retroflexed view of the gastric cardia. FINDINGS: The esophagus is normal in its entirety. The Z line is at 36 cm and is normal. The esop hagus is unremarkable without Viv-Tavares tear, esophagitis, or varices. The stomach exhibited multiple 4-8 mm cratered ulcerations in a scattered distribution around the an trum and pylorus. These also involved the incisura. The ulcers were all clean based without eviden ce of bleeding. There was bile in the stomach. The pyloric channel was patent without ulceration. The duodenum was normal to the 2nd portion. IMPRESSION: 1. Normal esophagus. 2. Multifocal gastric ulcerations, the largest being about 8 mm in size with cratered depth, but cl angle based. Findings: There was no active bleeding. I believe this is the cause of her abdominal p ain and these are likely either NSAID or stress induced. 3. The duodenum was normal to the 2nd portion. RECOMMENDATIONS: 1. Advance diet as tolerated. 2. Switch to oral PPI therapy twice daily. 3. Carafate 1 g p.o. q.i.d. for 2 weeks. 4. Will check H pylori serology and treat if positive. 5. Avoid all NSAIDs. 6. Return to hospital [facility] for possible discharge today. 7. Repeat endoscopy in 8 weeks to document healing. /[id number]/MODL
--- NOTE | 2016-11-04 14:25 | HOSPPROG ---
Hospitalist Progress Note Assessment/Plan: 21 yo F w likely viral gastroenteritis Patient was discharged earlier by Dr Felix/ reviewed her care with Dr Augustine. She has an antral and peptic ulcer/ she will need carafate and PPI bid/ also, cannot drive herself home today because of sedation/ her mom is to be flying in. Spoke with Dr Thais Garcia who will provide the patient w scripts as recommended. Objective: Vital Signs Temp Pulse Resp BP Pulse Ox 36.8 C 58 L 16 130/89 H 95 11/04/16 13:58 11/04/16 13:58 11/04/16 13:58 11/04/16 13:58 11/04/16 13:58 11/03/16 11/04/16 11/05/16 05:59 05:59 05:59 Intake Total 1100 600 Output Total 0 Balance 1100 600 ICD10 Worksheet Patient Problems: Problems Problem Status Onset Abdominal pain Acute Nausea & vomiting Acute Urinary tract infection Acute
--- NOTE | 2016-11-04 14:58 | PDDCSUM ---
Discharge Summary Discharge Summary: Update to previously dictated DC summary: Pt underwent EGD which showed peptic ulcer disease. An H Pylori Ab is drawn prior to d/c and she'll f/u with GI of the [facility] for results and further treatment as indicated. She is discharged on oral Prilosec twice daily and Carafate ACHS.
[2016-11-04 16:23] VITALS: BP 125/86; PULSE 68; TEMP 98.1; O2SAT 98
[2016-11-04] MEDS: SUCRALFATE 1 GM TAB PO SCH (16:33)
[2016-11-04 16:50] LABS: % SATURATION 14 % (20-55); TOTAL IRON BINDING CAPACITY 334 ug/dL (260-490)
[2016-11-04 17:17] LABS: FERRITIN - BCH 70.8 ng/mL (6.2-264.0)
== END 2016-11-04 17:43 | disposition home or self-care (01) ==
LOC: FOB 22:07
PROVIDERS: ADMIT Internal Medicine; ATTEND Internal Medicine
PROC: 0DJ08ZZ Inspection of Upper Intestinal Tract, Via Natural or Artificial Opening Endoscopic (ICD-10-PCS; principal; 2016-11-03)
DX: K27.3 Acute peptic ulcer, site unspecified, without hemorrhage or perforation (principal); K52.9 Noninfective gastroenteritis and colitis, unspecified; R11.2 Nausea with vomiting, unspecified; R00.0 Tachycardia, unspecified; E86.0 Dehydration; D64.9 Anemia, unspecified; Z88.0 Allergy status to penicillin
CPT/HCPCS: 43235; G0378; 96374; J2001; J2405; J2550; J2704; J3010

== ENCOUNTER 2016-12-24 21:04 | Emergency (ER) | payer OTHER, MEDICAID ==
--- NOTE | 2016-12-24 21:47 | EDPHY ---
H & P Stated Complaint: needle stick at work earlier today HPI/ROS: HPI CHIEF COMPLAINT: Needlestick HISTORY OF PRESENT ILLNESS: This patient very pleasant 21-year-old female, no significant medical history except for GERD, presents to the emergency room with a needle stick. needlestick right hand, palmar side, index finger. 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 The office was closed and the patient was already gone and the staff of the dental office was gone she was cleaning up. She does know the source. She tells me it is an 88-year-old lady she did review her medical history no reported HIV or hepatitis. The patient decided come to the emergency room at 10 o'clock at night Due to bruising at the needlestick site. She was not going to come in. She has no pain. She did wash the wound immediately. 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 Exam Constitutional triage nursing summary reviewed, vital signs reviewed, awake/ alert. Eyes normal conjunctivae and sclera, EOMI, PERRLA. HENT normal inspection, atraumatic, moist mucus membranes, no epistaxis, neck supple/ no meningismus, no raccoon eyes. Respiratory clear to auscultation bilaterally, normal breath sounds, no respiratory distress, no wheezing. Cardiovascular rate normal, regular rhythm, no murmur, no edema, distal pulses normal. Gastrointestinal soft, non-tender, no rebound, no guarding, normal bowel sounds, no distension, no pulsatile mass. Genitourinary no CVA tenderness. Musculoskeletal no midline vertebral tenderness, full range of motion, no calf swelling, no tenderness of extremities, no meningismus, good pulses, neurovascularly intact. Skin right hand; palmar side, index finger, very small puncture wound needle annia, no significant signs of infection, redness no swelling, no ecchymosis, pink, warm, & dry, no rash, skin atraumatic. Neurologic awake, alert and oriented x 3, AAOx3, moves all 4 extremities equally, motor intact, sensory intact, CN II-XII intact, normal cerebellar, normal vision, normal speech. Psychiatric normal mood/affect. Heme/Lymph/Immune no lymphadenopathy. Differential Diagnosis: Includes but is not limited to in a particular order needlestick, concerned about needlestick, skin abrasion, puncture wound, possible transmission of Infectious Disease. Medical Decision Making: This patient appears well nontoxic I did offer her HIV prophylaxis however she has declined. We did go over the risk and benefit of this. This is an outpatient needlestick. She came from a local dentist office. Needlestick happened 6 hours ago. She does know the source patient. Will send a rapid HIV and hep panel for her. She understands she needs to follow up with her dentist office go through workmen's comp, go through the appropriate channels for further screening and surveillance. She understands this. At this time she is agreeable for rapid HIV test hepatitis panel. She does understand that she needs to practice safe intercourse for next 6 months, also understands she needs surveillance for the next 6 months. Follow protocol at her office. Source: Patient - Personal History LMP (Females 10-55): Over 28 Days Ago Tetanus Vaccine Date: last 10 years - Medical/Surgical History Hx Asthma: No Hx Chronic Respiratory Disease: No Hx Diabetes: No Hx Cardiac Disease: No Hx Renal Disease: No Hx Cirrhosis: No Hx Alcoholism: No Hx HIV/AIDS: No Hx Splenectomy or Spleen Trauma: No Other PMH: meningitis as a child - Social History Smoking Status: Never smoked Constitutional: Initial Vital Signs Temperature (C) 37 C 12/24/16 21:14 Heart Rate 85 12/24/16 21:14 Respiratory Rate 20 12/24/16 21:14 Blood Pressure 122/78 H 12/24/16 21:14 O2 Sat (%) 98 12/24/16 21:14 Allergies/Adverse Reactions: Penicillins Allergy (Unknown, Verified 12/24/16 21:13) as child Home Medications: Medication Instructions Recorded Norethindrone AC-Eth Estradiol 1 each PO DAILY 11/03/16 [Junel 1 mg-20 Mcg Tablet] Omeprazole [Prilosec 20 mg] 20 mg PO BID #60 capsule. 11/04/16 Departure - Departure Disposition: Home, Routine, Self-Care Clinical Impression: Needle stick injury Qualifiers: Encounter type: initial encounter Qualified Code(s): W27.3XXA - Contact with needle (sewing), initial encounter Condition: Good Instructions: Needle Stick Injuries (ED) Additional Instructions: 1. Please report this injury to your workers comp and employer. 2. If you want any trouble please return to the emergency room or call if you have questions or concerns. 3.I have also referred to Infectious Disease. You may call and ask advice from them or even see them. Referrals: NONE *PRIMARY CARE P,. [Primary Care Provider] - As per Instructions Annia Hassan MD [Medical Doctor] - As per Instructions
[2016-12-24 22:32] VITALS: BP 120/68; PULSE 82; RESP 16; TEMP 98.4; O2SAT 97
== END 2016-12-24 22:31 | disposition home or self-care (01) ==
DX: S61.431A Puncture wound without foreign body of right hand, initial encounter (principal); W46.0XXA Contact with hypodermic needle, initial encounter; Y92.89 Other specified places as the place of occurrence of the external cause; Y99.0 Civilian activity done for income or pay; Y93.89 Activity, other specified
CPT/HCPCS: G0472

== ENCOUNTER 2017-02-08 11:55 | Emergency (ER) | payer MEDICAID ==
--- NOTE | 2017-02-08 12:40 | EDPHY ---
HPI/HX/ROS/PE/MDM Narrative: CHIEF COMPLAINT: "I woke up peeing blood and I think I have a UTI" HPI: The patient is a 21 y/o female, with a history of prior UTIs, complaining of dysuria and hematuria onset this morning. She has some associated mild suprapubic pain, but denies flank pain or fever. She states her symptoms feel exactly the same to prior UTIs. She took cranberry pills this morning for symptoms. She denies other complaints. REVIEW OF SYSTEMS: Aside from elements discussed in the HPI, a comprehensive 10-point review of systems was reviewed and is negative. PMH: meningitis as a child, stomach ulcers, prior UTIs Prior medical history reviewed including ED visit 07/28/16 for vaginal discharge and dysuria. SOCIAL HISTORY: Nonsmoker PHYSICAL EXAM: General:Patient is alert, in no acute distress. ENT:Eyes are normal to inspection. ENT inspection normal. Neck: Normal inspection. Full range of motion. Respiratory:No respiratory distress. Breath sounds normal bilaterally. Cardiovascular: Regular rate and rhythm. Strong peripheral pulses. Normal cap refill. Abdomen:The abdomen is nontender to palpation. There are no peritoneal signs. Back: Normal to inspection. No tenderness to palpation. Skin: Normal color. No rash. Warm and dry. Extremities: Normal appearance. Full range of motion. Neuro: Oriented x3. Normal motor function. Normal sensory function. ED Course: UA indicates UTI. Prior urine cultures show tobin-sensitive e-coli in October 2015. Patient will be discharged on Keflex with standard UTI follow up instructions. She agrees with this plan. Return precautions given. MDM: This patient presents with signs and symptoms similar to prior UTIs. Her urinalysis is consistent with this diagnosis. She has no signs of pyelonephritis or renal colic. She has no vaginal symptoms. I think she is appropriate for outpatient management with Keflex. - Data Points Laboratory Results: 02/08/17 12:10 Urine Color RED Urine Appearance CLOUDY Urine pH TNP Ur Specific [place] TNP Urine Protein 1+ H (NEGATIVE) Urine Ketones TNP Urine Blood 4+ H (NEGATIVE) Urine Nitrate TNP Urine Bilirubin NEGATIVE (NEGATIVE) Urine Urobilinogen TNP Ur Leukocyte Esterase TNP Urine RBC 50-182 /hpf H /hpf (0-3) Urine WBC 50-182 /hpf H /hpf (0-3) Ur Epithelial Cells 1+ /lpf /lpf (NONE-1+) Urine Bacteria TRACE /hpf H /hpf (NONE SEEN) Urine Glucose TNP General Time Seen by Provider: 02/08/17 12:30 Initial Vital Signs: Initial Vital Signs Heart Rate 84 02/08/17 11:56 Respiratory Rate 16 02/08/17 11:56 Blood Pressure 135/92 H 02/08/17 11:56 O2 Sat (%) 99 02/08/17 11:56 O2 (L/minute) 36.8 Allergies/Adverse Reactions: Penicillins Allergy (Unknown, Verified 12/24/16 21:13) as child Home Medications: Medication Instructions Recorded Norethindrone AC-Eth Estradiol 1 each PO DAILY 11/03/16 [Junel 1 mg-20 Mcg Tablet] Omeprazole [Prilosec 20 mg] 20 mg PO BID #60 capsule. 11/04/16 Cephalexin [Keflex] 500 mg PO TID #21 cap 02/08/17 Departure - Departure Disposition: Home, Routine, Self-Care Clinical Impression: UTI (urinary tract infection) Qualifiers: Urinary tract infection type: acute cystitis Hematuria presence: with hematuria Qualified Code(s): N30.01 - Acute cystitis with hematuria Condition: Good Instructions: Urinary Tract Infection in Women (ED) Additional Instructions: 1. Take Keflex as prescribed. Be sure to finish the entire prescription even if you feel better. 2. Use Tylenol and ibuprofen as directed below if needed for pain or fever for the next few days. 3. Follow up with your primary care provider for unimproved symptoms over the next week. 4. Return to the ED for severe pain, vomiting, back pain, uncontrollable fever, or other worsening of condition. Adult Pain & Fever Control: We recommend Acetaminophen (Tylenol) and Ibuprofen (Motrin,Advil) for pain and fever control. When fever is high or pain severe, both drugs can be used at the same time, but at different intervals. Please note the time differences. Your dose is: Acetaminophen 650mg every 4 to 6 hours Ibuprofen 600mg every 6-8 hours with food Note: do not take Acetaminophen with Hydrocodone (Vicodin, Lortab) or Oxycodone (Percocet). These medications also contain Acetaminophen. No more than 3000mg of Acetaminophen should be taken in 24 hours (for an adult). Referrals: Rudy Abbott MD [Medical Doctor] - As per Instructions Prescriptions: Cephalexin [Keflex] 500 mg PO TID #21 cap Report Scribed for: Shantanu Dalal Report Scribed by: Dolores Jensen Date of Report: 02/08/17 Time of Report: 12:34 Physician Review and Approval Statement: Portions of this note were transcribed by an ED scribe. I personally performed the history, physical exam, and medical decision making; and confirm the accuracy of the information in the transcribed note.
[2017-02-08 12:59] LABS: COLOR RED
[2017-02-08 13:02] LABS: BACTERIA TRACE /hpf (NONE SEEN); RBC,URINE 50-182 /hpf (0-3); WBC,URINE 50-182 /hpf (0-3)
[2017-02-08 13:14] VITALS: BP 128/67; PULSE 75; RESP 18; TEMP 98.2; O2SAT 96
== END 2017-02-08 13:18 | disposition home or self-care (01) ==
DX: N30.01 Acute cystitis with hematuria (principal); B96.89 Other specified bacterial agents as the cause of diseases classified elsewhere

== ENCOUNTER 2017-02-22 19:28 | Emergency (ER) | payer MEDICAID ==
[2017-02-22 19:32] VITALS: RESP 16
[2017-02-22] MEDS ORDERED: FLUCONAZOLE 150 MG TAB PO ONE (20:16)
--- NOTE | 2017-02-22 20:19 | EDPHY ---
H & P Time Seen by Provider: 02/22/17 20:00 HPI/ROS: CHIEF COMPLAINT: vaginal discharge, itching HISTORY OF PRESENT ILLNESS: 21-year-old female presents to the emergency department complaining of vaginal discharge and itching. The patient was seen in the emergency department on February 08, 2017 and diagnosed with urinary tract infection. She was started on Keflex and took the medication as prescribed. She now has vaginal irritation and is 100% certain that she has a vaginal yeast infection. She is prone to these yeast infections especially after taking antibiotics. She denies abdominal pain or back pain. Her last menstrual period was 3 weeks ago and she denies . She is not concerned about any other sexually transmitted infections. REVIEW OF SYSTEMS: Constitutional: No fever, no chills. Eyes: No double or blurry vision. ENT: No sore throat. Respiratory: No cough, no shortness of breath. Cardiac: No chest pain. Gastrointestinal: No abdominal pain, vomiting or diarrhea. Genitourinary: No dysuria. Musculoskeletal: No neck or back pain. Skin: No rashes. Neurological: No headache. Past Medical/Surgical History: Recent urinary tract infection Social History: Single Smoking Status: Never smoked Physical Exam: General Appearance: Alert, no distress. Afebrile and in no apparent distress. Eyes: Pupils equal and round. Extraocular motions are all intact. ENT: Mouth: Mucous membranes moist. Respiratory: No wheezing, rhonchi, or rales, lungs are clear to auscultation. Cardiovascular: Regular rate and rhythm. Gastrointestinal: Abdomen is soft and nontender, no masses, no rebound or guarding, bowel sounds normal. No CVA tenderness bilaterally. Neurological: Alert and oriented x 3, cranial nerves II through XII grossly intact Pelvic exam: Deferred Skin: Warm and dry, no rashes. Musculoskeletal: Nontender to palpate along the cervical, thoracic or lumbar spine. Neck is supple. Extremities: Full range of motion and no peripheral edema. Psychiatric: Patient is oriented X 3, there is no agitation. Constitutional: Initial Vital Signs Temperature (C) 36.9 C 02/22/17 19:30 Heart Rate 88 02/22/17 19:30 Respiratory Rate 16 02/22/17 19:30 Blood Pressure 134/82 H 02/22/17 19:30 O2 Sat (%) 98 02/22/17 19:30 O2 Delivery Mode Room Air Allergies/Adverse Reactions: Penicillins Allergy (Unknown, Verified 12/24/16 21:13) as child Home Medications: Medication Instructions Recorded Norethindrone AC-Eth Estradiol 1 each PO DAILY 11/03/16 [Junel 1 mg-20 Mcg Tablet] Omeprazole [Prilosec 20 mg] 20 mg PO BID #60 capsule. 11/04/16 Cephalexin [Keflex] 500 mg PO TID #21 cap 02/08/17 Phenazopyridine HCl [Pyridium] 200 mg PO TID #6 tab 02/08/17 Fluconazole [Diflucan (*)] 150 mg PO ONCE #1 tab 02/22/17 Medical Decision Making ED Course/Re-evaluation: 21-year-old female presents with vaginal itching and vaginal discharge. She has had similar symptoms in the past when she has had vaginal yeast infections. She is requesting Diflucan. She declined pelvic examination. The patient is not concerned about STDs. She will be started on Diflucan and was given a prescription to fill in 1 week. She was instructed to return to the emergency department if she developed abdominal pain, fever, or if she felt worse in any way. Differential Diagnosis: Including but not limited to pull vaginal candidiasis, sexually transmitted infection, bacterial vaginosis, urinary tract infection, pyelonephritis Departure - Departure Disposition: Home, Routine, Self-Care Clinical Impression: Candidiasis of vagina Condition: Good Instructions: Vulvovaginal Candidiasis (ED) Additional Instructions: Diflucan 150 mg now and may repeat in 1 week. Return to the emergency department if you develop abdominal pain, back pain, fevers, chills, or if you feel worse in any way. Referrals: Sera Seymour DO [Doctor of Osteopathy] - 2-3 days, if not improved (OBGYN on- call) Prescriptions: Fluconazole [Diflucan (*)] 150 mg PO ONCE #1 tab
[2017-02-22 20:49] VITALS: BP 121/87; PULSE 68; TEMP 98.1; O2SAT 97
== END 2017-02-22 20:48 | disposition home or self-care (01) ==
DX: B37.3 Candidiasis of vulva and vagina (principal)

== ENCOUNTER 2017-04-01 18:12 | Emergency (ER) | payer OTHER, MEDICAID ==
[2017-04-01 18:23] VITALS: TEMP 98.2
[2017-04-01] MEDS ORDERED: OXYCODONE/APAP 5/325 TAB PO ONE (19:08)
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
[2017-04-01] MEDS ORDERED: CYCLOBENZAPRINE 10MG PREPACK#3 BTL TAKEHOME ONE (20:32)
[2017-04-01 20:44] VITALS: BP 126/65; PULSE 77; RESP 16; O2SAT 96
== END 2017-04-01 20:43 | disposition home or self-care (01) ==
DX: S13.4XXA Sprain of ligaments of cervical spine, initial encounter (principal); V46.5XXA Car driver injured in collision with other nonmotor vehicle in traffic accident, initial encounter; Y92.410 Unspecified street and highway as the place of occurrence of the external cause; Y99.8 Other external cause status; Y93.89 Activity, other specified